=== PATIENT | male | born 1960 | race Caucasian/White ===

== ENCOUNTER 2023-10-10 05:42 | Emergency (ER) | payer BC, SELFPAY ==
[2023-10-10] VITALS (7 sets, daily range): BP systolic 140–176; BP diastolic 82–107; BMI 31.9
[2023-10-10 06:36] LABS: % Basophils 0.6 % (0-2); % Eosinophils 2.7 % (0-6); % Immature Granulocytes 0.5 % (0-0.5); % Lymphocytes 13.6 % (20.5-51.1); % Monocytes 6.4 % (1.7-9.3); % Neutrophils 76.2 % (42.2-75.2); Absolute Basophils 0.1 10^3/uL (0-0.2); Absolute Eosinophils 0.4 10^3/uL (0-0.7); Absolute Immature Granulocytes 0.1 10^3/uL (0-0.05); Absolute Monocytes 0.9 10^3/uL (0.1-0.6); Hematocrit 39.6 % (39.0-52.0); Hemoglobin 13.8 g/dL (13.0-18.0); Mean Corp Hgb Conc. 34.8 g/dL (33.0-37.0); Mean Corpuscular Hgb 29.7 pg (27.0-31.0); Mean Corpuscular Volume 85.2 fL (80.0-94.0); Mean Platelet Volume 10.5 fL (7.4-10.4); Nucleated Red Blood Cells % 0 % (-); Platelet Count 250 10^3/uL (130-400); Red Blood Cell Count 4.65 10^6/uL (4.70-6.10); White Blood Cell Count 14.5 10^3/uL (4.8-10.8)
[2023-10-10 06:50] LABS: ALT (SGPT) 32 U/L (0-50); AST (SGOT) 27 U/L (17-59); Albumin 4.3 g/dl (3.5-5.0); Alkaline Phosphatase 67 U/L (38-126); Blood Urea Nitrogen 8 mg/dl (9-20); Calcium 9.2 mg/dl (8.4-10.2); Carbon Dioxide 24 mmol/L (22-30); Chloride 94 mmol/L (98-107); Estimated Creatinine Clearance 99 ml/min; Glucose 148 mg/dl (70-99); Potassium 3.8 mmol/L (3.5-5.1); Sodium 127 mmol/L (135-145); Total Bilirubin 1.3 mg/dl (0.2-1.3); Total Protein 6.4 g/dl (6.3-8.2); eGFR > 60.00
[2023-10-10 07:00] LABS: Troponin I < 0.012 ng/ml
--- NOTE | 2023-10-10 07:19 | ED.GENMED ---
History of Present Illness
General
Chief Complaint: Cardiac Symptoms
Source: patient
Exam Limitations: none
Time Seen by Provider: 10/10/23 06:58
Travel History
Have you had any contact with someone who has COVID-19?: No
Do you have any symptoms of coronavirus? Fever > 100 degrees, chills, cough, shortness of breath, sore throat, loss of taste or smell, muscle aches, or headache?: No
History of Present Illness
History of Present Illness:
See MDM
Past History
Past History
ED Past Medical History: Asthma, GERD, HTN, Hypercholesterolemia and NIDDM
Social History
Tobacco: Non-smoker
Personal:
Living: with family
Phy Exam
Physical Exam
Physical Exam:
See MDM
Course
Orders/Labs/Results
Orders:
Orders
10/10/23 05:50
Electrocardiogram (*1) Urgent
Reason for Study: Other
Other Reason for Exam: Respiratory Distress
Cardiac Monitoring- Treatment ONCE
EKG- Treatment ONCE
IV Insert/Care/Rem.- Treatment PRN
O2 Therapy [RESP] Urgent
Titrate/Wean O2 to maintain O2 sat greater than (%): 93
Special Instructions: TO MAINTAIN CONTINUOUS O2 SATS >/= 93%
Pulse Ox/cont/shift [RESP] Urgent
Quantity: 1
Special Instructions: continuous pulse ox
10/10/23 06:11
Complete Blood Count/With Diff Urgent
Comprehensive Metabolic Panel Urgent
Troponin I Urgent
10/10/23 07:18
0.9% Sodium Chloride 1000 ml [Nss] 1,000 ml IV BOLUS
10/10/23 07:19
0.9% Sodium Chloride 1000 ml [Nss] 1,000 ml IV BOLUS
10/10/23 08:34
CR Chest - 2 Views Urgent
Comment:
Reason For Exam: Palpitations, elevated WBC
10/10/23 08:54
Urinalysis Reflex To Culture Urgent
Date Specimen was Collected: 10/10/23
Time Specimen was Collected: 08:38
10/10/23 09:00
Electrocardiogram (*1) Urgent
Reason for Study: Chest Pain
EKG- Treatment ONCE
Basic Metabolic Panel Urgent
CBC/No Diff [Complete Blood Count/No Diff] Urgent
Troponin I Urgent
Abnormal Lab Results
10/10/23 10/10/23
06:11 09:00
WBC 14.5 H 10^3/uL 12.3 H 10^3/uL
(4.8-10.8) (4.8-10.8)
RBC 4.65 L 10^6/uL 4.65 L 10^6/uL
(4.70-6.10) (4.70-6.10)
Hct 38.8 L %
(39.0-52.0)
MPV 10.5 H fL
(7.4-10.4)
Abs Immat Gran (auto) 0.1 H 10^3/uL
(0-0.05)
Absolute Neuts (auto) 11.0 H 10^3/uL
(1.4-6.5)
Absolute Monos (auto) 0.9 H 10^3/uL
(0.1-0.6)
Neutrophils % 76.2 H %
(42.2-75.2)
Lymphocytes % 13.6 L %
(20.5-51.1)
Sodium 127 L mmol/L 128 L mmol/L
(135-145) (135-145)
Chloride 94 L mmol/L 97 L mmol/L
(98-107) (98-107)
BUN 8 L mg/dl 7 L mg/dl
(9-20) (9-20)
Glucose 148 H mg/dl 123 H mg/dl
(70-99) (70-99)
10/10/23 09:00
10/10/23 09:00
Vital Signs
Initial and Last Documented VS:
Initial Vital Signs
Temp Pulse Resp BP Pulse Ox
97.8 F 84 18 176/107 98
10/10/23 05:44 10/10/23 05:44 10/10/23 05:44 10/10/23 05:44 10/10/23 05:44
Last Documented Vital Signs
Temp Pulse Resp BP Pulse Ox
97.8 F 75 23 141/82 96
10/10/23 05:44 10/10/23 10:00 10/10/23 10:00 10/10/23 10:00 10/10/23 09:30
MDM/Problems Addressed
Differential Diagnosis Includes:
HPI and MDM Narrative:
63-year-old male presenting with increased palpitations. Patient had similar episode in the past. He has since had echocardiogram and stress test which she states were normal. 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 He uses it as needed. He
noted the symptoms earlier this morning. After dose of propranolol, symptoms started to resolve. Patient believes this is sinus tachycardia and not A-fib.
On exam, he is well-appearing nontoxic. He has mildly dry mucous membranes. EKG shows sinus rhythm. Patient has mild leukocytosis and hyponatremia. He is clinically dehydrated. Will give IV fluids. We did discuss propranolol as a daily med
since this is a common recurrence. We discussed starting with propranolol at bedtime given that symptoms appear to be more consistent in the lead recoverer
Physical exam
General: Well appearing and non-toxic
HEENT: protecting airway. Mild dry mucous membranes
Neck: appears supple
CV: No evidence of cyanosis. Regular rate and rhythm
Resp: No accessory muscle use
Abd: Non-distended.
Extremities: No deformities. No leg edema
Neuro: alert
Psych: Normal affect
Skin: Intact
Problems Addressed including Acute and Chronic Conditions affecting care:
1. Palpitations
Acuity: acute
Prognosis: stable
Details: Likely sinus tachycardia. We discussed the possibility of A-fib. Patient states he has had negative workup in the past. Discussed propranolol as a nighttime med moving forward
2. Hyponatremia
Acuity: acute
Prognosis: stable
Details: Likely in setting of dehydration. Will give IV fluids. Discussed having his hyponatremia rechecked as an outpatient
3. Hyperglycemia
Acuity: acute
Prognosis: stable
Details: Patient states he has been monitoring his blood sugar with his PCP
Updates
Cardiology curb sided. We discussed that hydrochlorothiazide eating could be the culprit for the hyponatremia. Discussed cessation of hydrochlorothiazide again and now starting propranolol at nighttime
After fluids, sodium increased mildly. I expected a greater increase if this was dehydration related. We discussed possible hyponatremia secondary to hydrochlorothiazide. Instead of propranolol as needed, will start propranolol twice daily until
he can talk to his doctor
Differential Diagnosis (but not limited to): A-fib, dehydration, sinus tachycardia, anxiety
Testing considered: Thyroid function testing but symptoms resolved
Drug therapy (if applicable): OTC meds, please see d/c instruction regarding Rx drugs
Amount and/or Complexity of Data Reviewed
Clinical info obtained from: Patient
External data reviewed: N/A
Labs I independently reviewed (but not limited to): Mild hyponatremia
Radiology: N/A
Pulse Ox: not hypoxic
EKG independently reviewed: Normal sinus rhythm, normal axis, no STEMI
Television Writer: Sinus rhythm
Critical Care: N/A
Risk of Complication:
Social Determinants of health: Good social support
Discussed with other providers: N/A
Escalation of Care includes Admit/Obs: After being observed in the Emergency Department, pt stable for discharge.
Occasional wrong word or 'sound a like' substitutions may have occurred due to the inherent limitations of voice recognition software. Read the chart carefully and recognize, using context, where substitutions have occurred.
*Critical Care Note
Total Time (30-74mins, 75-104mins- exclusive of procedures): Not Applicable
ED Attending Note
-
Portions of this chart may have been created with voice recognition software.� Occasional wrong word or��sound alike� substitutions may have occurred due to the inherent limitations of voice recognition software.
Discharge Plan
Departure
Patient Disposition: Home (Routine Discharge)
Date of Disposition: 10/10/23
Time of Disposition: 10:44
Patient with high blood pressure during this ER visit?: Yes
Discharge Problem:
Heart palpitations, Acute dehydration, Acute hyponatremia
Instructions: BLOOD PRESSURE
Prescriptions:
New
propranolol 10 mg tablet
10 mg PO BID Qty: 60 0RF
No Action
propranolol 10 mg tablet
10 mg PO BID PRN (Reason: Palpitations) Qty: 30 0RF
metformin 500 mg Tablet
500 mg PO DAILY
metformin 500 mg Tablet
500 mg PO NOON
metformin 500 mg Tablet
1,000 mg PO QPM
famotidine 40 mg Tablet
40 mg PO HS
aspirin 81 mg Tablet,Delayed Release (Dr/Ec)
81 mg PO HS
pantoprazole 20 mg Tablet,Delayed Release (Dr/Ec)
20 mg PO DAILY
hydrochlorothiazide 12.5 mg Capsule
12.5 mg PO DAILY
lisinopril 5 mg Tablet
5 mg PO DAILY
rosuvastatin 20 mg Tablet
20 mg PO HS
desloratadine 2.5 mg Tablet,Disintegrating
2.5 mg PO HS
cholecalciferol (vitamin D3) 125 mcg (5,000 unit) Tablet
125 mcg PO DAILY PRN (Reason: supplement)
tafluprost (PF) 0.0015 % Dropperette
1 drp BOTH EYES HS
cyanocobalamin (vitamin B-12) 2,000 mcg Tablet
2,000 mcg PO DAILY PRN (Reason: supplement)
Referrals:
Liane Navarro MD [Family Provider] -
Activity Restrictions/Additional Instructions:
As we discussed, please start taking propranolol twice a day. Please have your blood work rechecked by your primary care doctor. Return for worsening symptoms.
Please stop the hydrochlorothiazide for now as this could be the reason for your hyponatremia.
Interventions
Interventions:
*Risk Screen - Suicide Last Done: 10/10/23 05:44
*General Assessment Last Done: 10/10/23 05:51
*Neglect/Abuse Screening Last Done: 10/10/23 05:44
ED- Fall Risk Assessment Last Done: 10/10/23 05:51
*ED COVID-19 Vaccine History Last Done: 10/10/23 05:51
ED- Pulmonary Assessment Last Done: 10/10/23 05:51
ED- Cardiac Assessment Last Done: 10/10/23 05:51
[2023-10-10] MEDS: NSS 1000 IV ×2 (07:28→07:29)
[2023-10-10 09:13] LABS: Hematocrit 38.8 % (39.0-52.0); Mean Corp Hgb Conc. 36.1 g/dL (33.0-37.0); Mean Corpuscular Hgb 30.1 pg (27.0-31.0); Mean Corpuscular Volume 83.4 fL (80.0-94.0); Platelet Count 243 10^3/uL (130-400); Red Blood Cell Count 4.65 10^6/uL (4.70-6.10); White Blood Cell Count 12.3 10^3/uL (4.8-10.8)
[2023-10-10 09:15] LABS: Urine Albumin Negative (Neg - Trace); Urine Bilirubin Negative (Negative); Urine Character Clear (Clear); Urine Color Straw; Urine Glucose Negative (Negative); Urine Ketone Negative (Negative); Urine Leukocyte Negative (Negative); Urine Nitrite Negative (Negative); Urine Occult Blood Negative (Negative); Urine Urobilinogen Negative (Neg - 1+)
[2023-10-10 09:23] LABS: Blood Urea Nitrogen 7 mg/dl (9-20); Calcium 8.5 mg/dl (8.4-10.2); Carbon Dioxide 25 mmol/L (22-30); Chloride 97 mmol/L (98-107); Estimated Creatinine Clearance 99 ml/min; Glucose 123 mg/dl (70-99); Potassium 3.8 mmol/L (3.5-5.1); Sodium 128 mmol/L (135-145); eGFR > 60.00
[2023-10-10 09:36] LABS: Troponin I < 0.012 ng/ml
== END 2023-10-10 10:53 | disposition home or self-care (01) ==
LOC: EMR 05:42
PROVIDERS: EMERGENCY PHYSICIAN Student in an Organized Health Care Education/Training Program; FAMILY PHYSICIAN Internal Medicine
DX: R00.2 Palpitations (principal); E87.1 Hypo-osmolality and hyponatremia; E86.0 Dehydration; I10 Essential (primary) hypertension
CPT/HCPCS: 99285; 96360; 96361; 71046; 80048; 80053; 81003; 84484; 85025; 85027; 93005

== ENCOUNTER 2025-02-14 01:49 | Emergency (ER) | payer MEDICARE, SELFPAY ==
[2025-02-14 01:59] VITALS: BP 163/99
[2025-02-14 02:01] VITALS: BP 163/99
[2025-02-14 02:22] LABS: % Basophils 0.5 % (0-2); % Eosinophils 2.4 % (0-6); % Immature Granulocytes 0.4 % (0-0.5); % Lymphocytes 17.6 % (20.5-51.1); % Monocytes 11.4 % (1.7-9.3); % Neutrophils 67.7 % (42.2-75.2); Absolute Basophils 0.1 10^3/uL (0-0.2); Absolute Eosinophils 0.2 10^3/uL (0-0.7); Absolute Lymphocytes 1.7 10^3/uL (1.2-3.4); Absolute Monocytes 1.1 10^3/uL (0.1-0.6); Absolute Neutrophils 6.7 10^3/uL (1.4-6.5); Hematocrit 42.6 % (39.0-52.0); Hemoglobin 15.2 g/dL (13.0-18.0); Mean Corp Hgb Conc. 35.7 g/dL (33.0-37.0); Mean Corpuscular Hgb 30.4 pg (27.0-31.0); Mean Corpuscular Volume 85.2 fL (80.0-94.0); Mean Platelet Volume 10.2 fL (7.4-10.4); Nucleated Red Blood Cells % 0 % (-); Platelet Count 234 10^3/uL (130-400); Red Cell Dist. Width 12.5 % (11.5-14.5); White Blood Cell Count 9.8 10^3/uL (4.8-10.8)
[2025-02-14] MEDS: NSS 1000 IV (02:38)
[2025-02-14 02:49] LABS: ALT (SGPT) 29 U/L (0-50); AST (SGOT) 23 U/L (17-59); Albumin 4.9 g/dl (3.5-5.0); Alkaline Phosphatase 58 U/L (38-126); Blood Urea Nitrogen 10 mg/dl (9-20); Calcium 10.3 mg/dl (8.4-10.2); Carbon Dioxide 25 mmol/L (22-30); Chloride 100 mmol/L (98-107); Estimated Creatinine Clearance 87 ml/min; Glucose 135 mg/dl (70-99); Potassium 4.4 mmol/L (3.5-5.1); Sodium 133 mmol/L (135-145); Total Bilirubin 2.4 mg/dl (0.2-1.3); Total Protein 7.2 g/dl (6.3-8.2); eGFR > 60.00
[2025-02-14 03:00] VITALS: BP 140/88
--- NOTE | 2025-02-14 03:19 | ED.GENMED ---
History of Present Illness
General
Chief Complaint: Heart Rate Problem
Source: patient, spouse and previous hospital records (ED visit March 2023 as well as September 2023 for similar complaint.)
Exam Limitations: none
Time Seen by Provider: 02/14/25 02:15
Nursing documentation reviewed up to this point in time: agreed with
History of Present Illness
History of Present Illness:
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 He has longstanding history of intermittent palpitations, tachycardia and follows with
cardiology, Dr. Schaeffer and reportedly has undergone unremarkable nuclear stress test as well as echocardiogram. Previous ED visits March 2023 as well as September 2023 for similar complaints of palpitations, tachycardia. Was noted to have mild
hyponatremia on last visit September 2023 with sodium of 127, improved with IV fluids. After that visit hydrochlorothiazide was discontinued, lisinopril dose increased from 10 to 20 mg.
He is maintained on propranolol 10 mg twice daily and instructed to take an extra dose of propranolol if palpitations recur.
He complains of palpitations, feeling that his heart was racing since yesterday evening and he did take an extra dose of propranolol, 10 mg at midnight.
He notes intermittent mild right upper chest discomfort, no cough no shortness of breath, no nausea no vomiting, no diarrhea or constipation. He denies fever nor chills. He denies dizziness nor lightheadedness. He does note very stressful day
yesterday at work, computer system malfunction.
He denies recent travel. No leg pain or swelling.
Past History
Past History
ED Past Medical History: Asthma, GERD, HTN, Hypercholesterolemia and NIDDM
ED Past Surgical History: Other (Umbilical hernia repair)
Social History
Tobacco: Non-smoker
Drug: None
Personal:
Living: with family
Employment: Employed
Family History
Family History: Other (Noncontributory)
Phy Exam
Physical Exam
Physical Exam:
GENERAL: 64-year-old gentleman appears his stated age, awake and alert, pleasant, appears in no acute distress. is accompanying.
EYE: anicteric
NECK: Supple, nontender, no meningismus, no significant adenopathy.
ENT: oral mucosa is moist. No rhinorrhea.
CARDIAC: Regular rate and rhythm. no murmur.
LUNGS: Clear breath sounds bilaterally, no acute respiratory distress, no wheezes/rales/rhonchi
ABDOMEN: Soft, nondistended, without focal tenderness
NEUROLOGICAL: Alert and oriented x3, no focal neuro deficits. Gait is steady.
SKIN: Warm and dry, normal color, skin intact. No rash.
MUSCULOSKELETAL: No C/C/E. peripheral pulses are full and equal b/l. No palpable tenderness.
PSYCH: Normal and appropriate interaction.
Course
Orders/Labs/Results
Orders:
Orders
02/14/25 01:57
EKG [Electrocardiogram (*1)] Urgent
Reason for Study: Tachycardia
02/14/25 01:58
EKG- Treatment ONCE
02/14/25 02:08
CMP [Comprehensive Metabolic Panel] Urgent
Complete Blood Count/With Diff Urgent
Magnesium Urgent
Comment: ADD ON
TSH Reflex To Free T4 Urgent
Comment: ADD ON
02/14/25 02:29
Add On- LAB Urgent
Tests Added?: TSH w reflex to free T-4; magnesium
0.9% Sodium Chloride 1000 ml [Nss] 1,000 ml IV BOLUS
02/14/25 02:39
Troponin I Urgent
Abnormal Lab Results
02/14/25
02:08
Absolute Neuts (auto) 6.7 H 10^3/uL
(1.4-6.5)
Absolute Monos (auto) 1.1 H 10^3/uL
(0.1-0.6)
Lymphocytes % 17.6 L %
(20.5-51.1)
Monocytes % 11.4 H %
(1.7-9.3)
Sodium 133 L mmol/L
(135-145)
Glucose 135 H mg/dl
(70-99)
Calcium 10.3 H mg/dl
(8.4-10.2)
Total Bilirubin 2.4 H mg/dl
(0.2-1.3)
02/14/25 02:08
02/14/25 02:08
Vital Signs
Initial and Last Documented VS:
Initial Vital Signs
Temp Pulse Resp BP Pulse Ox
98.3 F 87 20 163/99 97
02/14/25 01:59 02/14/25 01:59 02/14/25 01:59 02/14/25 01:59 02/14/25 01:59
Last Documented Vital Signs
Temp Pulse Resp BP Pulse Ox
98.3 F 76 14 140/88 96
02/14/25 01:59 02/14/25 03:45 02/14/25 03:45 02/14/25 03:00 02/14/25 03:45
MDM/Problems Addressed
Differential Diagnosis Includes:
Concern for tacky-arrhythmia which has since resolved, concern for electrolyte abnormality, hyponatremia. Other consideration is thyroid disorder. ACS less likely but consideration.
No history of thromboembolism nor risk factors for such.
EKG shows normal sinus rhythm at 88, no acute ST-T wave abnormalities. Similar and unchanged from previous EKG September 2023. Patient notes his heart rate is generally in the 60s.
Blood pressure generally well-controlled. Initial blood pressure 163/99.
Will check labs including troponin. Will check thyroid function.
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
Chronic conditions affecting care: DM and HTN
*Pulse Oximetry
Patient hypoxic: no
*EKG
Interpreted by ED Provider?: Yes
Interpretation: normal
Comparison EKG: no changes (Unchanged from previous September 2023)
Rate: normal
Rhythm: sinus
Armour: normal axis
Interval: normal interval
QRS Pattern: normal QRS
Ischemia: no ischemia
*Devops Consultant Interpretation
Rate: normal
Interpretation: normal
Rhythm: sinus
*Critical Care Note
Total Time (30-74mins, 75-104mins- exclusive of procedures): Not Applicable
Update Note
Update Note:
04:30
Patient feeling improved. Eager to be discharged to home.
Monitor continues to show normal sinus rhythm.
Troponin is negative. TSH is normal.
Will discharge to home with recommendations to stay well-hydrated on a daily basis.
Continue current medications.
Follow-up with hvac installer, Dr. Schaeffer as well as PCP.
ED Attending Note
-
Portions of this chart may have been created with voice recognition software.� Occasional wrong word or��sound alike� substitutions may have occurred due to the inherent limitations of voice recognition software.
Discharge Plan
Departure
Patient Disposition: Home (Routine Discharge)
Date of Disposition: 02/14/25
Time of Disposition: 04:34
Patient with high blood pressure during this ER visit?: No
Condition: Good
Discharge Problem:
Heart palpitations
Instructions: Palpitations (DC)
Prescriptions:
No Action
propranolol 10 mg tablet
10 mg PO BID PRN (Reason: Palpitations) Qty: 30 0RF
metformin 500 mg Tablet
500 mg PO DAILY
metformin 500 mg Tablet
500 mg PO NOON
metformin 500 mg Tablet
1,000 mg PO QPM
famotidine 40 mg Tablet
40 mg PO HS
aspirin 81 mg Tablet,Delayed Release (Dr/Ec)
81 mg PO HS
pantoprazole 20 mg Tablet,Delayed Release (Dr/Ec)
20 mg PO DAILY
hydrochlorothiazide 12.5 mg Capsule
12.5 mg PO DAILY
lisinopril 5 mg Tablet
5 mg PO DAILY
rosuvastatin 20 mg Tablet
20 mg PO HS
desloratadine 2.5 mg Tablet,Disintegrating
2.5 mg PO HS
cholecalciferol (vitamin D3) 125 mcg (5,000 unit) Tablet
125 mcg PO DAILY PRN (Reason: supplement)
tafluprost (PF) 0.0015 % Dropperette
1 drp BOTH EYES HS
cyanocobalamin (vitamin B-12) 2,000 mcg Tablet
2,000 mcg PO DAILY PRN (Reason: supplement)
propranolol 10 mg tablet
10 mg PO BID Qty: 60 0RF
Referrals:
Adalberto Love DO [Active, Cardiology] - Call in 1-3 days for appt
Liane Navarro MD [Family Provider, Internal Medicine]
Interventions
Interventions:
*Risk Screen - Suicide Last Done: 02/14/25 01:59
*General Assessment Last Done: 02/14/25 01:59
*Neglect/Abuse Screening Last Done: 02/14/25 01:59
*ED- Fall Risk Assessment Last Done: 02/14/25 01:59
*ED COVID-19 Vaccine History Last Done: 02/14/25 01:59
ED- Cardiac Assessment Last Done: 02/14/25 02:14
ED- Pulmonary Assessment Last Done: 02/14/25 02:14
Discharge Date and Time
Print Language: GABONESE
[2025-02-14 03:34] LABS: Troponin I < 0.012 ng/ml
[2025-02-14 03:50] LABS: Magnesium 1.8 mg/dl (1.6-2.3)
[2025-02-14 04:22] LABS: TSH Reflex To Free T4 2.68 uIU/ml (0.47-4.68)
== END 2025-02-14 04:57 | disposition home or self-care (01) ==
LOC: EMR 01:49
PROVIDERS: EMERGENCY PHYSICIAN Emergency Medicine; FAMILY PHYSICIAN Internal Medicine
DX: R00.2 Palpitations (principal); E11.9 Type 2 diabetes mellitus without complications; I10 Essential (primary) hypertension
CPT/HCPCS: 99284; 96360; 80053; 83735; 84443; 84484; 85025; 93005

== ENCOUNTER → 2025-03-13 11:45 | Outpatient (REF) | payer MEDICARE, SELFPAY | LOC: HWRAD 11:45 | PROVIDERS: ATTENDING PHYSICIAN Internal Medicine | DX: M79.672 Pain in left foot (principal) | CPT/HCPCS: 73630 ==

== ENCOUNTER → 2025-03-20 08:07 | Outpatient (REF) | payer MEDICARE, SELFPAY | LOC: MRI 08:07 | PROVIDERS: ATTENDING PHYSICIAN Internal Medicine; FAMILY PHYSICIAN Internal Medicine; REFERRING PHYSICIAN Student in an Organized Health Care Education/Training Program | DX: K76.0 Fatty (change of) liver, not elsewhere classified (principal); M54.12 Radiculopathy, cervical region; M54.2 Cervicalgia; M50.30 Other cervical disc degeneration, unspecified cervical region | CPT/HCPCS: 72141; 74183; 76391; A9575 ==

== ENCOUNTER 2025-04-10 06:28 | Day surgery (SDC) | payer MEDICARE, SELFPAY ==
[2025-04-10 09:42] LABS: Glucose - Point of Care 130 mg/dl (70-99)
== END 2025-04-10 10:57 | disposition home or self-care (01) ==
LOC: GI 06:28
PROVIDERS: ATTENDING PHYSICIAN Internal Medicine
DX: K22.2 Esophageal obstruction (principal); K44.9 Diaphragmatic hernia without obstruction or gangrene; Z87.19 Personal history of other diseases of the digestive system
CPT/HCPCS: 43239; 82962; 88305

== ENCOUNTER → 2025-08-23 11:08 | Outpatient (REF) | payer MEDICARE, SELFPAY | LOC: HWRCS 11:08 | PROVIDERS: ATTENDING PHYSICIAN Internal Medicine Cardiovascular Disease; FAMILY PHYSICIAN Internal Medicine | DX: R07.89 Other chest pain (principal) | CPT/HCPCS: 78452; 93017; A9500 ==